=== PATIENT | male | born 1945 | race Caucasian/White ===

== ENCOUNTER 2020-08-28 15:15 | Outpatient (CLI) | payer MEDICARE, OTHER ==
--- NOTE | 2020-08-28 17:00 | XRAY Report ---
PROCEDURE: Foot 2 View LT INDICATIONS: FOOT PAIN, LEFT TECHNIQUE: 2 views of the foot were acquired. COMPARISON: None. FINDINGS: Bones: No fractures or dislocations. No suspicious bony lesions. Plantar calcaneal spur. 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 Achilles tendon appears normal. Scattered vascular calcifications. IMPRESSION: Radiopaque foreign body projecting the plantar soft tissues of the heel. Plantar calcaneal spur. Reviewed by: Gonsalo Morales MD on 08/28/2020 4:59 PM PDT Approved by: Gonsalo Morales MD on 08/28/2020 4:59 PM PDT Station ID: [id number]
== END 2020-08-28 23:59 | disposition home or self-care (01) ==
LOC: DI.N 15:15
PROVIDERS: ATTEND Family Medicine
DX: M79.672 Pain in left foot (principal); M79.5 Residual foreign body in soft tissue; M77.32 Calcaneal spur, left foot

== ENCOUNTER 2020-10-05 09:14 | Outpatient (CLI) | payer MEDICARE, OTHER ==
--- NOTE | 2020-10-05 17:10 | XRAY Report ---
PROCEDURE: Foot 3 View LT INDICATIONS: L FOOT PX TECHNIQUE: 3 views of the foot were acquired. COMPARISON: X-ray foot 08/28/2020 FINDINGS: Bones: No fractures or dislocations. No suspicious bony lesions. Soft tissues: No tibiotalar joint effusion. Achilles tendon appears normal. Previously identified radiopaque foreign body projecting over the soft tissues of the plantar heel remains present. IMPRESSION: Persistent radiopaque foreign body as above. Reviewed by: Latoya Berry MD on 10/05/2020 5:08 PM PDT Approved by: Latoya Berry MD on 10/05/2020 5:08 PM PDT Station ID: [id number]
== END 2020-10-05 23:59 | disposition home or self-care (01) ==
LOC: DI.N 09:14
PROVIDERS: ATTEND Family Medicine
DX: M79.672 Pain in left foot (principal); M79.5 Residual foreign body in soft tissue

== ENCOUNTER 2020-10-15 12:29 | Outpatient (CLI) | payer MEDICARE, OTHER ==
--- NOTE | 2020-10-16 09:31 | XRAY Report ---
PROCEDURE: Ankle 3 View LT INDICATIONS: LEFT ANKLE CONTUSION TECHNIQUE: 3 views of the ankle were acquired. COMPARISON: None FINDINGS: Bones: No fractures or dislocations. Ankle mortise is normally aligned. No suspicious bony lesions . Soft tissues: No tibiotalar joint effusion. Achilles tendon appears normal. IMPRESSION: No acute fracture. No osseous lesion. If symptoms and/or clinical suspicion for patholog y continue, further assessment with repeat plain films, or advanced imaging (e.g., CT, MRI, or bone s can) is recommended for further assessment. Reviewed by: Mariela Linda MD on 10/16/2020 9:30 AM PDT Approved by: Mariela Linda MD on 10/16/2020 9:30 AM PDT Station ID: [id number]
== END 2020-10-15 12:30 | disposition home or self-care (01) ==
LOC: DI.N 12:29
PROVIDERS: ATTEND Nurse Practitioner
DX: S90.02XA Contusion of left ankle, initial encounter (principal)

== ENCOUNTER 2022-01-31 08:00 | Outpatient (CLI) | payer MEDICARE, OTHER ==
--- NOTE | 2022-01-31 16:40 | XRAY Report ---
PROCEDURE: Ribs w/PA Chest LT INDICATIONS: L RIB PX TECHNIQUE: 3 views of the left ribs were acquired, along with a single view chest. COMPARISON: None FINDINGS: Surgical changes and devices: None. Bones and chest wall: No fractures or dislocations. No suspicious bony lesions. Overlying soft tis sues appear unremarkable. Lungs and pleura: No pleural effusions or pneumothorax. Lungs appear clear. Mediastinum: Mediastinal contours appear normal. Heart size is normal. IMPRESSION: Negative chest and left rib detail films. Reviewed by: Juan C Appiah MD on 01/31/2022 4:39 PM PST Approved by: Juan C Appiah MD on 01/31/2022 4:39 PM PST Station ID: [id number]
== END 2022-01-31 23:59 | disposition home or self-care (01) ==
LOC: DI.N 08:00
PROVIDERS: ATTEND Physician Assistant Medical
DX: S20.222A Contusion of left back wall of thorax, initial encounter (principal)

== ENCOUNTER 2023-08-22 08:16 | Outpatient (CLI) | payer MEDICARE, OTHER ==
--- NOTE | 2023-08-22 10:02 | XRAY Report ---
PROCEDURE: Hand 3+V LT INDICATIONS: CONTUSION OF LEFT HAND TECHNIQUE: 3 views of the hand(s) acquired. COMPARISON: None. FINDINGS: Bones: No fractures or dislocations. Severe first CMC joint degeneration. . No suspicious bony lesio ns. Soft tissues: No suspicious soft tissue calcifications or masses. IMPRESSION: 1.No acute bony abnormality. 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 Reviewed by: Sheldon Caldera MD on 08/22/2023 10:00 AM PDT Approved by: Sheldon Caldera MD on 08/22/2023 10:00 AM PDT Station ID: [id number]
--- NOTE | 2023-08-22 10:05 | XRAY Report ---
PROCEDURE: Lumbar Spine 2-3V INDICATIONS: BACK PAIN, LOW TECHNIQUE: 3 views of the lumbar spine were acquired. COMPARISON: None. FINDINGS: Surgical change: None. Bones: 5 [id number] vertebrae are present. Mild levocurvature of the lumbar spine. Mild anterol isthesis of L3 on L4. Grade 1 anterolisthesis of L4 on L5. No vertebral body compression fractures. No suspicious bony lesions. There are multilevel degenerative changes of the lumbar spine with facet arthropathy and disc height loss with degenerative endplate changes and marginal spurring. This is m ost pronounced at L5-S1. Diffusely decreased osseous mineralization. Soft tissues: Overlying bowel gas pattern is normal. No suspicious soft tissue calcifications. Ath erosclerotic vascular calcifications. IMPRESSION: Multilevel degenerative changes of the lumbar spine, most pronounced at L5-S1. Reviewed by: Sheldon Caldera MD on 08/22/2023 10:03 AM PDT Approved by: Sheldon Caldera MD on 08/22/2023 10:03 AM PDT Station ID: [id number]
== END 2023-08-22 08:17 | disposition home or self-care (01) ==
LOC: DI.N 08:16
PROVIDERS: ATTEND Physician Assistant Medical
DX: M47.816 Spondylosis without myelopathy or radiculopathy, lumbar region (principal); M47.817 Spondylosis without myelopathy or radiculopathy, lumbosacral region; M18.12 Unilateral primary osteoarthritis of first carpometacarpal joint, left hand